=== PATIENT | female | born 1995 | race American Indian/Alaskan Native ===

== ENCOUNTER 2019-09-13 15:37 | Emergency (ER) | payer MEDICAID ==
[2019-09-13] MEDS ORDERED: Acetaminophen/oxyCODONE 325-5 MG Tab PO ONE (16:18)
--- NOTE | 2019-09-13 17:26 | CRLCR ---
Exam: Three views of the right shoulder. INDICATION: Pain in right shoulder after fall. COMPARISON: None. FINDINGS: The clavicle scapula and proximal humerus are intact. Visualized right ribs are normal. The glenohumeral joint space is normal. IMPRESSION: Normal right shoulder radiograph. Dictated by Hima Santos MD @ Sep 13 2019 5:24PM Signed by Dr. Hima Santos @ Sep 13 2019 5:25PM
--- NOTE | 2019-09-13 17:36 | EDM.PDOC ---
ED HPI GENERAL MEDICAL PROBLEM - General Chief Complaint: Upper Extremity Injury/Pain Stated Complaint: ACCIDENT VIA [facility] Time Seen by Provider: 09/13/19 15:55 Source of Information: Reports: Patient History Limitations: Reports: Intoxication - History of Present Illness INITIAL COMMENTS - FREE TEXT/NARRATIVE: pt arrived with pain in the rt upper arm. She slipped on the ice and caught herself with the outstretched arm. She has no elebow tenderness. She has pain in the upper arm and shoulder area. She has alot of pain when she goes to lift the arm. 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: Musculoskeletal History: Reports: Back Pain, Chronic Social & Family History - Tobacco Use Smoking Status *Q: Current Every Day Smoker Years of Tobacco use: 12 Packs/Tins Daily: 0.5 Used Tobacco, but Quit: No Second Hand Smoke Exposure: Yes - Caffeine Use Caffeine Use: Reports: Coffee, Energy Drinks, Soda, Tea - Alcohol Use Days Per Week of Alcohol Use: 0 - Recreational Drug Use Recreational Drug Use: No Review of Systems - Review of Systems Review Of Systems: See Below Constitutional: Reports: No Symptoms Eyes: Reports: No Symptoms Ears: Reports: No Symptoms Nose: Reports: No Symptoms Mouth/Throat: Reports: No Symptoms Respiratory: Reports: No Symptoms Cardiovascular: Reports: No Symptoms GI/Abdominal: Reports: No Symptoms Genitourinary: Reports: No Symptoms Musculoskeletal: Reports: Other (pain in the rt upper arm. ) Skin: Reports: No Symptoms ED EXAM, GENERAL - Physical Exam Exam: See Below Free Text/Narrative:: pt fell on the ice and landed on her rt shoulder. She is having difficulty lifty the arm because of pain, She has some very tight muscle spasm on the front of the arm. Exam Limited By: No Limitations General Appearance: Alert, Anxious Extremities: Other (pt starts with tenderness on the midportion of the arm and into the shoulder. Her elebow is not tender. She is not tender over the clavicle , ) Neurological: Alert, Oriented, Normal Cognition Course - Vital Signs Last Recorded V/S: Last Vital Signs Temp 36.5 C 09/13/19 16:04 Pulse 71 09/13/19 16:04 Resp 18 09/13/19 16:04 BP 130/78 09/13/19 16:04 Pulse Ox 97 09/13/19 16:04 - Orders/Labs/Meds Labs: Laboratory Tests 09/13/19 Range/Units 16:45 Urine HCG, Qual Negative Meds: Medications Discontinued Medications Generic Name Dose Route Start Last Admin Trade Name Freq PRN Reason Stop Dose Admin Oxycodone/Acetaminophen 1 tab 09/13/19 16:18 09/13/19 16:33 Percocet 325-5 Mg PO 09/13/19 16:19 1 tab ONETIME ONE Administration - Re-Assessments/Exams Free Text/Narrative Re-Assessment/Exam: 09/13/19 17:41 xray of the shoulder and the humerus, clavicle reveals no fractures, This is a muscle pull or possible rotator cuff injury. Departure - Departure Time of Disposition: 17:42 Disposition: Home, Self-Care 01 Condition: Fair Clinical Impression: Muscle strain, upper arm - Discharge Information Instructions: Muscle Strain, [id number] Referrals: PCP,None [Primary Care Provider] - Forms: ED Department Discharge Care Plan Goals: sling, ice pack to the shoulder and upper arm, baclofen 10 mg bid to relax muscles, tramodol 50mg tid as needed for pain Ortho appt thur is not better. sling Sepsis Event Note - Evaluation Sepsis Screening Result: No Definite Risk - Focused Exam Vital Signs: Vital Signs Temp Pulse Resp BP Pulse Ox 09/13/19 16:04 36.5 C 71 18 130/78 97 09/13/19 15:45 36.5 C 71 18 130/78 97 Date Exam was Performed: 09/13/19 Time Exam was Performed: 17:52
== END 2019-09-13 18:09 | disposition home or self-care (01) ==
LOC: JP.ED 15:37
DX: S46.911A Strain of unspecified muscle, fascia and tendon at shoulder and upper arm level, right arm, initial encounter (principal); F17.210 Nicotine dependence, cigarettes, uncomplicated; W00.0XXA Fall on same level due to ice and snow, initial encounter
CPT/HCPCS: 73030-RT; 81025; 99284-25; A9270-GY

== ENCOUNTER 2021-04-19 17:51 | Emergency (ER) | payer MEDICAID ==
[2021-04-19] MEDS ORDERED: cefTRIAXone 1 GM, Lidocaine 1% 2.1 ML IM ONE ×2 (18:27)
[2021-04-19] MEDS ORDERED: Bacitracin Oint 1 GM U/D Packet ONE (18:40)
--- NOTE | 2021-04-19 18:44 | EDM.PDOC ---
ED HPI GENERAL MEDICAL PROBLEM - General Chief Complaint: Skin Complaint Stated Complaint: SCRAPE ON LEG, ANKLE SWOLLEN Time Seen by Provider: 04/19/21 18:20 Source of Information: Reports: Patient History Limitations: Reports: No Limitations - History of Present Illness INITIAL COMMENTS - FREE TEXT/NARRATIVE: chief complaint: wound infection. This is a 25 year old female presents to the ER , reports was shaving her legs on Saturday, when she slipped and cut her left ankle. She applied a bandage but ankle cut has not healed, it is now spread open draining, redness and swelling of the foot. denies any acute pain, fever or chills. 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) - Related Data Allergies Allergy/AdvReac Type Severity Reaction Status Date / Time No Known Allergies Allergy Verified 04/19/21 18:17 Home Meds: Home Meds Buprenorphine HCl/Naloxone HCl [Suboxone 12 mg-3 mg Sl Film] 1 film PO DAILY 09/13/19 [History] Past Medical History HEENT History: Reports: None Cardiovascular History: Reports: None Respiratory History: Reports: None Gastrointestinal History: Reports: None Genitourinary History: Reports: None 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: Musculoskeletal History: Reports: Back Pain, Chronic, Other (See Below) Other Musculoskeletal History: right upper arm sprain Neurological History: Reports: None Psychiatric History: Reports: None Endocrine/Metabolic History: Reports: None, Obesity/BMI 30+ Hematologic History: Reports: None Immunologic History: Reports: None Oncologic (Cancer) History: Reports: None Dermatologic History: Reports: None - Past Surgical History Head Surgeries/Procedures: Reports: None HEENT Surgical History: Reports: None Endocrine Surgical History: Reports: None Musculoskeletal Surgical History: Reports: None Dermatological Surgical History: Reports: None Social & Family History - Caffeine Use Caffeine Use: Reports: Energy Drinks, Soda ED ROS GENERAL - Review of Systems Review Of Systems: See Below Constitutional: Reports: Other (wound to the left ankle) HEENT: Reports: No Symptoms Respiratory: Reports: No Symptoms Cardiovascular: Reports: No Symptoms Endocrine: Reports: No Symptoms GI/Abdominal: Reports: No Symptoms : Reports: No Symptoms Musculoskeletal: Reports: Other (left lateral ankle wound) Skin: Reports: Wound (left lateral ankle) Neurological: Reports: No Symptoms Psychiatric: Reports: No Symptoms Hematologic/Lymphatic: Reports: No Symptoms Immunologic: Reports: No Symptoms ED EXAM, SKIN/RASH Exam: See Below Exam Limited By: No Limitations General Appearance: Alert, WD/WN, No Apparent Distress, Other (pleasant, neat and well groomed.) Ears: Normal External Exam, Hearing Grossly Normal Throat/Mouth: Normal Lips, Normal Voice, No Airway Compromise Head: Atraumatic, Normocephalic Neck: Normal Inspection, Supple, Non-Tender, Full Range of Motion Respiratory/Chest: No Respiratory Distress Cardiovascular: Normal Peripheral Pulses Extremities: Normal Range of Motion, Non-Tender, Normal Capillary Refill Neurological: Alert, Oriented, No Motor/Sensory Deficits Psychiatric: Normal Affect, Normal Mood Skin: Warm, Erythema (left lateral ankle wound ), Increased Warmth, Wound/Incision Location, Skin: Lower Extremity, Left Characteristics: Linear (4 cm length 1.5 cm wide ) Associated features: Warmth, Inflammation (surrounding the wound), Weeping (clear discharge noted) Lymphatic: No Adenopathy Course - Vital Signs Last Recorded V/S: Last Vital Signs Temp 97.6 F 04/19/21 18:18 Pulse 102 H 04/19/21 18:18 Resp 16 04/19/21 18:18 BP 132/85 04/19/21 18:18 Pulse Ox 97 04/19/21 18:18 - Orders/Labs/Meds Orders: Active Orders 24 hr Category Date Time Status Dressing Change [Wound Care] [RC] DAILY Care 04/19/21 18:28 Active Vaccines to be Administered [RC] PER UNIT ROUTINE Care 04/19/21 18:52 Ordered Vaccines to be Administered [RC] PER UNIT ROUTINE Care 04/19/21 18:56 Ordered Bacitracin [Bacitracin Oint] Med 04/19/21 21:00 Active See Dose Instructions TOP TID Diphth,Pertuss(Acell),Tet Vac [Boostrix] Med 04/19/21 18:56 Once 0.5 ml IM .ONCE ONE Medication Orders Bacitracin (Bacitracin Oint 28.35 Gm Tube) 0 gm TOP TID SIMONE Meds: Medications Generic Name Dose Route Start Last Admin Trade Name Freq PRN Reason Stop Dose Admin Bacitracin 0 gm 04/19/21 21:00 Bacitracin Oint 28.35 Gm Tube TOP TID SIMONE Discontinued Medications Generic Name Dose Route Start Last Admin Trade Name Simeon PRN Reason Stop Dose Admin Bacitracin Confirm 04/19/21 18:40 04/19/21 18:43 Bacitracin Oint 1 Gm U/D Packet Administered 04/19/21 18:41 1 dose Dose Administration 1 dose .ROUTE .STK-MED ONE Ceftriaxone Sodium 1 gm/ 0 gm 04/19/21 18:27 04/19/21 18:42 Lidocaine HCl 2.1 ml IM 04/19/21 18:28 2.1 inj ONETIME ONE Administration Tetanus/Diphtheria Toxoids 0.5 ml 04/19/21 18:52 Diphtheria/Tetanus Toxoids,Adult (Td) 0.5 Ml Sdv IM 04/19/21 18:53 .ONCE ONE - Re-Assessments/Exams Free Text/Narrative Re-Assessment/Exam: 04/19/21 18:59 given dressing change given Rocephin 1 gram IM given Tdap IM referral to wound care clinic Departure - Departure Time of Disposition: 19:00 Disposition: Home, Self-Care 01 Condition: Good Clinical Impression: Cellulitis and abscess of left leg Wound of left ankle Qualifiers: Encounter type: initial encounter Qualified Code(s): S91.002A - Unspecified open wound, left ankle, initial encounter - Discharge Information *PRESCRIPTION DRUG MONITORING PROGRAM REVIEWED*: Not Applicable *COPY OF PRESCRIPTION DRUG MONITORING REPORT IN PATIENT VIRGIE: Not Applicable Instructions: Cellulitis, Adult, [id number] Referrals: PCP,None [Primary Care Provider] - Forms: ED Department Discharge Care Plan Goals: Cellulitis/wound of left ankle -given Rocephin 1 gm IM in ER -start today Keflex 500 mg take 4 times a day til gone -daily dressing changes with bacitracin ointment, gauze, and colban -referral to wound clinic for recheck review sign of infection, return to ER immediately for any fever, chills, nausea, vomiting, increase pain, redness or any concerns. Sepsis Event Note (ED) - Evaluation Sepsis Screening Result: No Definite Risk - Focused Exam Vital Signs: Vital Signs Temp Pulse Resp BP Pulse Ox 04/19/21 18:18 97.6 F 102 H 16 132/85 97 04/19/21 18:16 97.6 F 102 H 16 132/85 97 - Problem List & Annotations (1) Cellulitis and abscess of left leg SNOMED Code(s): 366128913 Code(s): L03.116 - CELLULITIS OF LEFT LOWER LIMB; L02.416 - CUTANEOUS ABSCESS OF LEFT LOWER LIMB Status: Acute Priority: High Current Visit: Yes (2) Wound of left ankle SNOMED Code(s): 491555170, 777037161 Code(s): S91.002A - UNSPECIFIED OPEN WOUND, LEFT ANKLE, INITIAL ENCOUNTER Status: Acute Priority: High Current Visit: Yes Qualifiers: Encounter type: initial encounter Qualified Code(s): S91.002A - Unspecified open wound, left ankle, initial encounter - Problem List Review Problem List Initiated/Reviewed/Updated: Yes - My Orders Last 24 Hours: My Active Orders 04/19/21 18:28 Dressing Change [Wound Care] [RC] DAILY 04/19/21 18:52 Vaccines to be Administered [RC] PER UNIT ROUTINE 04/19/21 18:56 Vaccines to be Administered [RC] PER UNIT ROUTINE Diphth,Pertuss(Acell),Tet Vac [Boostrix] 0.5 ml IM .ONCE ONE 04/19/21 21:00 Bacitracin [Bacitracin Oint] See Dose Instructions TOP TID - Assessment/Plan Last 24 Hours: My Active Orders 04/19/21 18:28 Dressing Change [Wound Care] [RC] DAILY 04/19/21 18:52 Vaccines to be Administered [RC] PER UNIT ROUTINE 04/19/21 18:56 Vaccines to be Administered [RC] PER UNIT ROUTINE Diphth,Pertuss(Acell),Tet Vac [Boostrix] 0.5 ml IM .ONCE ONE 04/19/21 21:00 Bacitracin [Bacitracin Oint] See Dose Instructions TOP TID Plan: Cellulitis/wound of left ankle -given Rocephin 1 gm IM in ER -start today Keflex 500 mg take 4 times a day til gone -daily dressing changes with bacitracin ointment, gauze, and colban -referral to wound clinic for recheck review sign of infection, return to ER immediately for any fever, chills, nausea, vomiting, increase pain, redness or any concerns.
[2021-04-19] MEDS ORDERED: Diphtheria/Tetanus Toxoids,Adult (Td) 0.5 ML SDV IM ONE (18:52)
[2021-04-19] MEDS ORDERED: Diphtheria,Pertussis(Acell),Tetanus Vaccine 0.5 ML Syringe IM ONE (18:56)
[2021-04-19] MEDS ORDERED: Bacitracin Oint 28.35 GM Tube TOP SCH (21:00)
== END 2021-04-19 19:01 | disposition home or self-care (01) ==
LOC: JP.ED 17:51
DX: S91.002A Unspecified open wound, left ankle, initial encounter (principal); L03.116 Cellulitis of left lower limb; L02.416 Cutaneous abscess of left lower limb; E66.9 Obesity, unspecified; Z68.38 Body mass index [BMI] 38.0-38.9, adult; Z23 Encounter for immunization; W26.8XXA Contact with other sharp object(s), not elsewhere classified, initial encounter
CPT/HCPCS: 90471; 90715; 96372; 99283; J0696

== ENCOUNTER 2025-03-13 15:06 | Emergency (ER) | payer MEDICAID | END 2025-03-13 18:50 | disposition home or self-care (01) | LOC: JP.ED 15:06 | DX: M54.42 Lumbago with sciatica, left side (principal); F17.210 Nicotine dependence, cigarettes, uncomplicated; Z79.899 Other long term (current) drug therapy | CPT/HCPCS: 81025; 99283 ==